=== PATIENT | male | born 1955 | race Caucasian/White ===

== ENCOUNTER 2017-11-03 08:47 | Inpatient (IN) | payer OTHER ==
[~2017-11-03] VITALS: Ht 177.8 cm; Wt 79.8 kg
[2017-11-03] VITALS (7 sets, daily range): BP systolic 92–138; BP diastolic 53–84
--- NOTE | ~2017-11-03 | 2DMMODE ---
[facility] [address] [place] [address] 2 D/M-MODE ECHOCARDIOGRAM Name: BREA SNOW Room #: 204-P ADM IN M.R.#: [id number] Admission: 11/03/17 Attend Phys: Neville Linares Discharge: Date of : 51 Date of Service: 11/03/17 1359 Report #: [id number] THIS REPORT FOR: //name// APPROVED REPORT Study performed: 11/03/2017 12:56:19 EXAM: Comprehensive 2D, Doppler, and color-flow Echocardiogram Patient Location: Bedside Room #: 204 Status: routine BSA: 1.97 HR: 63 bpm BP: 99/55 mmHg Rhythm: NSR Other Information Study Quality: Good Indications Chest pain. Hx: MV repair 09/2017. 2D Dimensions RVDd: 34.94 mm LVEF(%): 47.27 (>50%) IVSd: 8.97 (7-11mm) LVOT Diam: 23.30 (18-24mm) LVDd: 56.78 mm PWd: 9.35 (7-11mm) Ascending Ao: 34.44 (22-36mm) LVDs: 43.13 (25-40mm) Aortic Root: 37.67 mm Freeman's LVEF: 47.27 % Volumes Left Atrial Volume (Systole) Single Plane 4CH: 50.46 mL Single Plane 2CH: 57.09 mL LA ESV Index: 29.00 mL/m2 Aortic Valve AoV Peak Elijah.: 1.25 m/s AO Peak Gr.: 6.25 mmHg LVOT Max P.46 mmHg LVOT Max V: 1.06 m/s HENNA Vmax: 3.60 cm2 Mitral Valve E/A Ratio: 1.1 MV Decel. Time: 360.16 ms [facility] [place] [address] 2 D/M-MODE ECHOCARDIOGRAM Name: BREA SNOW Room #: 204-P [facility] IN .R.#: [id number] Admission: 11/03/17 Attend Phys: Neville Linares Discharge: Date of : 51 Date of Service: 11/03/17 1359 Report #: [id number] MV E Max Elijah.: 1.21 m/s MV A Elijah.: 1.11 m/s MV PHT: 104.45 ms IVRT: 101.50 ms Pulmonary Valve PV Peak Elijah.: 0.76 m/s PV Peak Gr.: 2.30 mmHg Pulmonary Vein P Vein S: 0.45 m/s P Vein A: 0.25 m/s P Vein D: 0.48 m/s P Vein A Dur.: 124.6 msec P Vein S/D Ratio: 0.94 Tricuspid Valve TR Peak Elijah.: 2.34 m/s RAP Estimate: 5.00 mmHg TR Peak Gr.: 21.93 mmHg PA Pressure: 27.00 mmHg Left Ventricle The left ventricle is normal size. There is normal left ventricular wall thickness. Left ventricular systolic function is normal. LVEF is 55%. Moderate diastolic dysfunction is present (pseudonormal filling). Right Ventricle The right ventricle is normal size. The right ventricular systolic function is normal. Atria The left atrium size is normal. The right atrium size is normal. Aortic Valve The aortic valve is normal in structure. Trace aortic regurgitation. There is no aortic valvular stenosis. Mitral Valve Status post mitral valve repair. (09/2017) Mild mitral regurgitation. No evidence of mitral valve stenosis. Tricuspid Valve The tricuspid valve is normal in structure. Mild tricuspid regurgitation. Estimated PAP is 25-30mmHg. Pulmonic Valve The pulmonary valve is normal in structure. Trace pulmonic [facility] [address] [place] [address] 2 D/M-MODE ECHOCARDIOGRAM Name: BREA SNOW Room #: 204-P [facility] IN [facility].#: [id number] Admission: 11/03/17 Attend Phys: Neville Linares Discharge: Date of : 51 Date of Service: 11/03/17 1359 Report #: [id number] regurgitation. Great Vessels Aortic root measures at the upper limits of normal. The ascending aorta is normal in size. IVC is normal in size and collapses >50% with inspiration. Pericardium There is no pericardial effusion. <Conclusion> The left ventricle is normal size. LVEF is 55%. Moderate diastolic dysfunction is present (pseudonormal filling). The right ventricle is normal size. The left atrium size is normal. Trace aortic regurgitation. Mild mitral regurgitation. Mild tricuspid regurgitation. Estimated PAP is 25-30mmHg. There is no pericardial effusion. <ELECTRONICALLY SIGNED> By: Bradford Knox MD, FACC 11/03/17 1359 1359 1359 Bradford Knox MD, FACC /INF
--- NOTE | ~2017-11-03 | H ---
[facility] [place] [address] HISTORY AND PHYSICAL Name: BREA SNOW Room #: 204-P [facility] IN M.R.#: [id number] Admission: 11/03/17 Attend Phys: Jp Zimmerman MD Discharge: 11/04/17 Date of : 51 Report #: [id number] THIS REPORT FOR: //name// CC: Guy Zimmerman DATE OF SERVICE: 11/03/2017 CHIEF COMPLAINT: Chest pain. HISTORY OF PRESENT ILLNESS: The patient is a 62-year-old male with history of hypertension, status post mitral valve repair on 09/20/2017, presented to the emergency room complaining of chest pain. The patient also has history of Parkinson's disease and has a brain stimulator placed in the past. He reported sudden onset of left-sided chest pain at around 7:00 a.m. He described this as a pressure, which radiated to his right side of the chest and to the neck. It is also associated with mild shortness of breath. No dizziness. He took some Prilosec without much relief. In the emergency room, his chest pain improved a little bit from 5/10 to 3/10 with sublingual nitroglycerin. PAST MEDICAL HISTORY: Significant for hypertension, recent mitral valve repair, history of tonsillectomy. No history of diabetes, no history of any known coronary artery disease. History of Parkinson's disease and status post brain stimulator, he is followed up at [facility]. FAMILY HISTORY: Significant for hypertension. ALLERGIES: To DOXYCYCLINE, please look at the nursing documentation for the reaction. HOME MEDICATIONS: Reviewed, please look at the nursing documentation. REVIEW OF SYSTEMS: CONSTITUTIONAL: No fever or chills. EYES: No change in vision. THROAT: Denies any sore throat. CARDIOVASCULAR: As above. RESPIRATORY: No cough or expectoration. GASTROINTESTINAL: No nausea or vomiting. GENITOURINARY: No dysuria or hematuria. NEUROLOGIC: Denies any focal numbness or weakness of the extremity. He does have some generalized weakness. The 12-point review of system is negative other than the positive and negative dictated in the history of present illness and the review of system. [address] [address] HISTORY AND PHYSICAL Name: BREA SNOW Room #: 204-P [facility] IN [facility].#: [id number] Admission: 11/03/17 Attend Phys: Jp Zimmerman MD Discharge: 11/04/17 Date of : 51 Report #: [id number] PHYSICAL EXAMINATION: VITAL SIGNS: Reveal blood pressure 92/53, heart rate of 76 per minute, afebrile. GENERAL: The patient is awake and alert, not in acute respiratory distress. EYES: Pupils are equal, reactive to light, nonicteric conjunctivae. THROAT. He has a dry oral mucosa. Speech is kind of slow, which is his baseline. NECK: Supple, no JVD, no bruit, no lymphadenopathy. CARDIOVASCULAR SYSTEM: S1, S2, negative S3, no murmur. CHEST: Bilateral air entry present. Clear on auscultation. ABDOMEN: Soft, bowel sounds present, no mass, no organomegaly, no tenderness. PERIPHERY: No pedal edema. No calf tenderness. Dorsalis pedis 1+. NEUROLOGIC: No focal neurological deficit noted. LABORATORY DATA: Reviewed. CT of the chest showed no evidence of any PE, there is mild cardiomegaly, fatty infiltration. Chest x-ray showed no acute abnormality. His troponin has been negative so far. His BUN and creatinine are 13 and 1.3. His BNP was 872. White count is 9.9, normal hemoglobin. His EKG showed normal sinus rhythm, left atrial enlargement. No significant ST segment or T-wave changes. ASSESSMENT: 1. Chest pain, etiology not clear. Possible angina. The patient will be admitted to telemetry, will undergo serial troponin. We will check his lipids in the morning. We will consult cardiology. We will consider to obtain an echocardiogram to evaluate his left ventricular function and mitral valve. CT chest showed no evidence of any pulmonary embolism. 2. Hypertension. The patient will be continued on his present home medication. 3. Recent mitral valve repair with minimally invasive . 4. Deep vein thrombosis prophylaxis. He will be on Lovenox for DVT prophylaxis. Treatment plan has been explained to the patient and the patient's at bedside in detail. <ELECTRONICALLY SIGNED> By: Jp Zimmerman MD 11/05/17 1354 1238 1327 Jp Zimmerman MD /nt
--- NOTE | ~2017-11-03 | EKG ---
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 : 1955 Requested By: Miles Goodwin Order Number: [id number] MD: Bruno Davis Measurements Intervals [place] Rate: 70 P: 48 NV: 149 QRS: 21 QRSD: 92 T: 69 QT: 394 QTc: 426 Interpretive Statements Sinus rhythm Probable left atrial enlargement Compared to ECG 10/24/2006 11:19:56 Sinus bradycardia no longer present ST (T wave) deviation no longer present Electronically Signed On 11-04-2017 8:17:59 [employer]ACKJ[employer] DEALER by Bruno Davis [email or web address] <ELECTRONICALLY SIGNED> By: Bruno Davis MD 11/04/17816 3 3 Bruno Davis MD /EPI
[2017-11-03 09:14] LABS: HEMATOCRIT 41.7 % (42.0-52.0); HEMOGLOBIN 14.3 gm/dL (14.0-18.0); MCH 31.9 pg (26.0-34.0); MCHC 34.3 g/dL (28.0-37.0); RBC 4.49 mil/uL (4.50-6.00); RDW 12.8 % (10.5-14.5); WBC 9.9 thou/uL (4.0-11.0)
[2017-11-03 09:22] LABS: ANION GAP 7 mmol/L (7-16); BUN 13 mg/dL (7-18); CALCIUM 8.7 mg/dL (8.5-10.1); CHLORIDE 103 mmol/L (98-107); CO2 29 mmol/L (21-32); CREATININE 1.1 mg/dL (0.7-1.3); GLUCOSE 113 mg/dL (74-106); POTASSIUM 3.8 mmol/L (3.5-5.1); SODIUM 139 mmol/L (136-145)
[2017-11-03] MEDS ORDERED: CARBIDOPA-LEVO1 EAC9 PO (09:28)
[2017-11-03] MEDS ORDERED: AMANTADINE100 M1 PO (09:28)
[2017-11-03] MEDS ORDERED: LOPRESSOR50 PO (09:29)
[2017-11-03] MEDS ORDERED: SIMVASTATIN40 MG PO (09:29)
[2017-11-03] MEDS ORDERED: PAXIL10 MG PO (09:29)
[2017-11-03] MEDS ORDERED: ASPIR 8181 MG PO (09:30)
[2017-11-03] MEDS ORDERED: MULTIPLE VITAM1 EAC2 PO (09:30)
[2017-11-03] MEDS ORDERED: MELATONIN3 MG PO (09:30)
[2017-11-03 09:31] LABS: TROPONIN-I < 0.04 ng/mL (<0.06)
[2017-11-03] MEDS ORDERED: TYLENOL325 MG PO (09:31)
[2017-11-03] MEDS ORDERED: STOOL SOFTENER100 MG PO (09:31)
[2017-11-04 03:54] VITALS: BP 112/81
[2017-11-04 05:07] LABS: ANION GAP 4 mmol/L (7-16); BUN 12 mg/dL (7-18); CALCIUM 8.5 mg/dL (8.5-10.1); CHLORIDE 105 mmol/L (98-107); CHOLESTEROL 128 mg/dL (<200); CO2 29 mmol/L (21-32); CREATININE 1.1 mg/dL (0.7-1.3); GLUCOSE 97 mg/dL (74-106); HDL CHOLESTEROL 60 mg/dL (>40); LDL CHOLESTEROL 63 mg/dL (<100); POTASSIUM 3.7 mmol/L (3.5-5.1); SODIUM 138 mmol/L (136-145); TC:HDL 2.1 Ratio (Not establshd); TRIGLYCERIDE 27 mg/dL (<150); VLDL 5 mg/dL (<40)
[2017-11-04 05:11] LABS: SERUM ASSESSMENT Clear
[2017-11-04 05:41] LABS: HEMATOCRIT 35.9 % (42.0-52.0); MCHC 34.2 g/dL (28.0-37.0); MCV 93.4 fL (80.0-100.0); RBC 3.85 mil/uL (4.50-6.00); RDW 12.7 % (10.5-14.5)
[2017-11-04 05:43] LABS: HEMOGLOBIN 12.3 gm/dL (14.0-18.0)
[2017-11-04 07:15] VITALS: BP 116/63
[2017-11-04 11:49] VITALS: BP 82/53
[2017-11-04 12:05] VITALS: BP 82/53
[2017-11-04 12:55] VITALS: BP 82/53
[2017-11-04 12:57] VITALS: BP 82/53
== END 2017-11-04 13:23 | disposition home health service (06) | DRG 313 ==
LOC: ER 08:47 → 2N 09:53 → EROBS 09:53 → 2N 10:19 → ENTRNSPT 11-04 13:07 → EDTRNSPTSTS 11-04 13:11 → 2N 11-04 13:23
PROVIDERS: Emergency Medicine; Internal Medicine
DX: R07.89 Other chest pain (principal); G20 Parkinson's disease; I10 Essential (primary) hypertension; E78.5 Hyperlipidemia, unspecified; K21.9 Gastro-esophageal reflux disease without esophagitis; K58.9 Irritable bowel syndrome, unspecified; I48.0 Paroxysmal atrial fibrillation; Z82.49 Family history of ischemic heart disease and other diseases of the circulatory system; Z87.891 Personal history of nicotine dependence; Z88.1 Allergy status to other antibiotic agents; Z79.899 Other long term (current) drug therapy; Z90.49 Acquired absence of other specified parts of digestive tract; Z28.21 Immunization not carried out because of patient refusal
CPT/HCPCS: 10078

== ENCOUNTER 2018-11-10 15:08 | Emergency (ER) | payer OTHER ==
[~2018-11-10] VITALS: Ht 177.8 cm; Wt 81.7 kg
[~2018-11-10 15:08] MED LIST: AMANTADINE100 M1 PO; ASPIR 8181 MG PO; CARBIDOPA-LEVO1 EAC9 PO; LOPRESSOR50 PO; MELATONIN3 MG PO; MULTIPLE VITAM1 EAC2 PO; PAXIL10 MG PO; SIMVASTATIN40 MG PO; STOOL SOFTENER100 MG PO; TYLENOL325 MG PO
[2018-11-10 17:15] VITALS: BP 94/54
== END 2018-11-10 17:15 | disposition home or self-care (01) ==
LOC: ER 15:08
DX: S01.01XA Laceration without foreign body of scalp, initial encounter (principal); G20 Parkinson's disease; Z87.891 Personal history of nicotine dependence; Z88.8 Allergy status to other drugs, medicaments and biological substances; W18.39XA Other fall on same level, initial encounter; Y92.89 Other specified places as the place of occurrence of the external cause; Y93.89 Activity, other specified; Y99.8 Other external cause status

== ENCOUNTER 2019-12-01 14:50 | Emergency (ER) | payer OTHER ==
[~2019-12-01] VITALS: Ht 180.3 cm; Wt 81.7 kg
[2019-12-01] MEDS ORDERED: NORCO 5-325 TA1 EAC1 PO (16:49)
[2019-12-01 17:12] VITALS: BP 103/64
== END 2019-12-01 17:30 | disposition home or self-care (01) ==
LOC: ER 14:50
DX: S22.41XA Multiple fractures of ribs, right side, initial encounter for closed fracture (principal); G20 Parkinson's disease; Z87.891 Personal history of nicotine dependence; Z88.1 Allergy status to other antibiotic agents; W18.39XA Other fall on same level, initial encounter; Y93.89 Activity, other specified; Y92.89 Other specified places as the place of occurrence of the external cause; Y99.8 Other external cause status

== ENCOUNTER → 2020-01-24 | Outpatient (CLI) | payer OTHER ==
[~2020-01-24] MED LIST changes: +NORCO 5-325 TA1 EAC1 PO
== END ==
LOC: SJCVC 14:20
DX: I34.0 Nonrheumatic mitral (valve) insufficiency (principal); I10 Essential (primary) hypertension; E78.5 Hyperlipidemia, unspecified; G20 Parkinson's disease; Z98.890 Other specified postprocedural states; Z79.899 Other long term (current) drug therapy; Z87.891 Personal history of nicotine dependence

== ENCOUNTER → 2020-07-28 | Outpatient (CLI) | payer OTHER | LOC: SJCVC 17:00 | PROVIDERS: ATTEND Internal Medicine | DX: I34.0 Nonrheumatic mitral (valve) insufficiency (principal); I10 Essential (primary) hypertension; E78.5 Hyperlipidemia, unspecified; G20 Parkinson's disease; Z98.890 Other specified postprocedural states ==

== ENCOUNTER → 2021-01-26 | Outpatient (CLI) | payer OTHER ==
[~2021-01-26] MED LIST changes: +B12INJ IM; +BLACK ELDERBER1 EACH PO; +FISH OIL 1,0001 EAC9 PO; +FLOMAX0.4 MG PO; +RIVASTIGMINE1.5 MG PO; +VITAMIN D310 MC1 PO; +ZYRTEC10 M2 PO
== END ==
LOC: SJCVC 14:31
PROVIDERS: ATTEND Internal Medicine
DX: I34.0 Nonrheumatic mitral (valve) insufficiency (principal); I10 Essential (primary) hypertension; E78.5 Hyperlipidemia, unspecified; G20 Parkinson's disease; Z98.890 Other specified postprocedural states; K21.9 Gastro-esophageal reflux disease without esophagitis; Z79.899 Other long term (current) drug therapy; Z87.891 Personal history of nicotine dependence; Z88.1 Allergy status to other antibiotic agents

== ENCOUNTER 2021-01-29 09:31 | Emergency (ER) | payer OTHER ==
[~2021-01-29] VITALS: Ht 180.3 cm; Wt 83.0 kg
[~2021-01-29 09:31] MED LIST changes: -B12INJ IM; -BLACK ELDERBER1 EACH PO; -FISH OIL 1,0001 EAC9 PO; -FLOMAX0.4 MG PO; -RIVASTIGMINE1.5 MG PO; -VITAMIN D310 MC1 PO; -ZYRTEC10 M2 PO
[2021-01-29] MEDS ORDERED: FLOMAX0.4 MG PO (09:40)
[2021-01-29] MEDS ORDERED: RIVASTIGMINE1.5 MG PO (09:40)
[2021-01-29] MEDS ORDERED: ZYRTEC10 M2 PO (09:41)
[2021-01-29] MEDS ORDERED: VITAMIN D310 MC1 PO (09:42)
[2021-01-29] MEDS ORDERED: FISH OIL 1,0001 EAC9 PO (09:43)
[2021-01-29] MEDS ORDERED: BLACK ELDERBER1 EACH PO (09:43)
[2021-01-29] MEDS ORDERED: B12INJ IM (09:43)
[2021-01-29 12:13] VITALS: BP 111/59
== END 2021-01-29 12:14 | disposition home or self-care (01) ==
LOC: ER 09:31
DX: S22.41XA Multiple fractures of ribs, right side, initial encounter for closed fracture (principal); M54.5 Low back pain; Z79.899 Other long term (current) drug therapy; Z87.891 Personal history of nicotine dependence; Z79.82 Long term (current) use of aspirin; Z88.1 Allergy status to other antibiotic agents; W18.39XA Other fall on same level, initial encounter; Y93.89 Activity, other specified; Y92.89 Other specified places as the place of occurrence of the external cause; Y99.8 Other external cause status

== ENCOUNTER → 2021-03-26 | Outpatient (CLI) | payer OTHER ==
[~2021-03-26] MED LIST changes: +B12INJ IM; +BLACK ELDERBER1 EACH PO; +FISH OIL 1,0001 EAC9 PO; +FLOMAX0.4 MG PO; +RIVASTIGMINE1.5 MG PO; +VITAMIN D310 MC1 PO; +ZYRTEC10 M2 PO
== END ==
LOC: RAD 15:08
PROVIDERS: ATTEND Family Medicine
DX: R91.8 Other nonspecific abnormal finding of lung field (principal); J98.11 Atelectasis; J90 Pleural effusion, not elsewhere classified; R06.02 Shortness of breath; R07.9 Chest pain, unspecified

== ENCOUNTER → 2021-07-30 | Outpatient (CLI) | payer OTHER | LOC: SJCVC 15:17 | PROVIDERS: ATTEND Internal Medicine | DX: I34.0 Nonrheumatic mitral (valve) insufficiency (principal); I10 Essential (primary) hypertension; E78.5 Hyperlipidemia, unspecified; G20 Parkinson's disease; Z98.890 Other specified postprocedural states; Z87.891 Personal history of nicotine dependence; Z79.82 Long term (current) use of aspirin; Z79.899 Other long term (current) drug therapy; Z88.1 Allergy status to other antibiotic agents ==

== ENCOUNTER 2021-09-06 17:13 | Inpatient (IN) | payer OTHER ==
[~2021-09-06] VITALS: Ht 180.3 cm; Wt 86.2 kg
--- NOTE | ~2021-09-06 | EMS ---
[address] [address] EMS Patient Care Report Name: BREA SNOW Room #: 170-11 ADM IN M.R.#: [id number] Admission: 09/06/21 Attend Phys: Linda Goodrich MD Discharge: Date of : 51 Report #: [id number] THIS REPORT FOR: //name// Report Transmitted: 09/06/2021 22:56 EMS Care Summary [facility] Incident [id number] @ 09/06/2021 16:16 Incident Location [address] [place] [address] Patient BREA SNOW Male, 66 Years 1955 Patient Address [address] [place] [address] Patient History Parkinson's Disease,Cardiac Murmur, Patient Allergies Seasonal allergy, Patient Medications Clonazepam, Paroxetine, Carbidopa, Chief Complaint syncope Disposition Transported No Lights/[place] Reason Falls Transported To [facility] Narrative Family states pt had syncope and collapse. Family states pt was sitting at end of table. Family states pt got blank stare on face and went unconscious briefly. Family states pt went down to the ground. Family states pt did not hit head. Family states chair broke behind pt during fall. [facility] states pt has [address] [address] EMS Patient Care Report Name: BREA SNOW Room #: 170-[address] [facility]#: [id number] Admission: 09/06/21 Attend Phys: Linda Goodrich MD Discharge: Date of : 51 Report #: [id number] stimulator implanted in left chest to help control tremors. Family states pt is not supposed to be ambulatory independently. Family states pt has hx of Parkinson's. Family states pt has low blood pressure. Family does not know pt's resting HR. 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 Family states pt has no cardiac abnormalities; besides cardiac murmur which was repaired. Family states pt is at baseline upon EMS arrival. Pt states he remembers prior to and after event. Pt states he went to stand up and felt uneasy. Pt states did not have anything to grab onto to keep his balance. Pt states next he knew he was on the floor. Pt denies hitting his head. Pt denies any chest pain or discomfort. Pt denies any difficulty breathing. Pt denies any pain or discomfort. Pt was calm and cooperative. EMS did not note any signs of trauma, deformity, or bleeding. Rhythm strip left w/ ED RN. Pt's tremors created artifact. Monitor unable to transmit vitals directly. Pt found seated on floor w/ supporting back and neck upon arrival, alert and oriented, in no apparent distress. Airway patent, breathing adequate, pulses present. Physical assessment as noted. Treat pt for syncope and transport to ED. [place] [facility] dispatched to residence on 66 yo male w/ noted hx, suffering from syncope. Arrived on scene to find pt on floor. Primary assessment performed, baseline vitals obtained. Cardiac monitoring initiated, 12-lead obtained. Assisted pt to standing and to chair, w/o incident. Vitals reassessed. Assisted pt to standing and to cot, w/o incident. Secured pt to cot. Moved pt to ambulance. Vascular access obtained. Transported pt to [facility], w/o incident. Pt and vitals monitored en route. Arrived at destination and moved pt to ER. Transferred pt to bed, using sheet, w/ assistance from staff, w/o incident. Report given and care transferred to ED RN. Pt left in stable condition. [facility] cleared. Initial Vitals @16:30P: 37,Pain: 0/10, @16:26P: 40,R: 20,BP: 110/60,Pain: 0/10,GCS: 15,SpO2: 97,Revised Trauma: 12, @16:27P: 36,R: 20,Pain: 0/10,GCS: 15,SpO2: 97, @16:32P: 37,R: 20,Pain: 0/10,GCS: 15,SpO2: 97,[place] Suspected: false @16:57P: 36,R: 20,BP: 100/51,Pain: 0/10,GCS: 15,SpO2: 97,Revised Trauma: 12,[place] Suspected: false @17:05P: 36,R: 20,Pain: 0/10,GCS: 15,SpO2: 95, @17:10P: 36,R: 20,BP: 90/56,GCS: 15,SpO2: 96,Revised Trauma: 12, Impression Syncope / Fainting [facility] [address] [place] [address] EMS Patient Care Report Name: BREA SNOW Room #: 170-11 ADM IN M.R.#: [id number] Admission: 09/06/21 Attend Phys: Linda Goodrich MD Discharge: Date of : 51 Report #: [id number] Procedures @16:23 ALS Assessment Response: UnchangedSucceeded @16:59 IV Therapy - Lactated Ringers 900cc (20 ga) Site: Hand-Right Response: UnchangedSucceeded @16:27 3-Lead ECG Response: UnchangedSucceeded @16:30 12-Lead ECG Response: UnchangedSucceeded @16:32 12-Lead ECG Response: UnchangedSucceeded @16:46 12-Lead ECG Response: UnchangedSucceeded Timeline 16:14,Call Received 16:14,Psap Call 16:16,Dispatched 16:18,En Route 16:21,Initial Responder On Scene 16:21,On Scene 16:22,At Patient 16:23,ALS Assessment,Response: UnchangedSucceeded, 16:26,BP: 110/60 M,PULSE: 40,RR: 20 R,SPO2: 97 Ox,ETCO2: ,BG: ,PAIN: 0,GCS: 15, 16:27,3-Lead ECG,Response: UnchangedSucceeded, 16:27,BP: / M,PULSE: 36,RR: 20 R,SPO2: 97 Ox,ETCO2: ,BG: ,PAIN: 0,GCS: 15, 16:30,12-Lead ECG,Response: UnchangedSucceeded, 16:30,BP: / M,PULSE: 37,RR: R,SPO2: Ox,ETCO2: ,BG: ,PAIN: 0,GCS: , 16:32,12-Lead ECG,Response: UnchangedSucceeded, 16:32,BP: / M,PULSE: 37,RR: 20 R,SPO2: 97 Ox,ETCO2: ,BG: ,PAIN: 0,GCS: 15, 16:46,12-Lead ECG,Response: UnchangedSucceeded, 16:57,BP: 100/51 M,PULSE: 36,RR: 20 R,SPO2: 97 Ox,ETCO2: ,BG: ,PAIN: 0,GCS: 15, 16:59,IV Therapy - Lactated Ringers 900cc 20 ga Site: Hand-Right,Response: UnchangedSucceeded, 17:04,Depart Scene 17:05,BP: / M,PULSE: 36,RR: 20 R,SPO2: 95 Ox,ETCO2: ,BG: ,PAIN: 0,GCS: 15, 17:08,At Destination 17:10,BP: 90/56 M,PULSE: 36,RR: 20 R,SPO2: 96 Ox,ETCO2: ,BG: ,PAIN: ,GCS: 15, 17:15,Transfer Patient 17:41,Call Closed Disclaimer v1.1 Copyright 2020 [employer] This EMS Care Summary contains data elements from the applicable legal record (which may be displayed differently). It is designed to provide pertinent information for the following purposes: continuity of care, clinical quality, and state data reporting. The complete legal record is available to ED staff and administrators of the receiving hospital in [employer] Patient Tracker. All data is provided "as is."
[2021-09-06 17:14] VITALS: BP 103/39
[2021-09-06 17:40] LABS: ABSOLUTE NEUTROPHILS 3.2 thou/uL (1.4-8.2); BASOPHILS 0.4 % (0.0-2.0); EOSINOPHILS 10.7 % (0.0-3.0); HEMATOCRIT 44.8 % (42.0-52.0); LYMPHOCYTES 30.3 % (24.0-44.0); MCH 32.4 pg (26.0-34.0); MCHC 33.5 g/dL (28.0-37.0); MCV 96.7 fL (80.0-100.0); PLATELET COUNT 180 thou/uL (150-400); POLYS 50.6 % (36.0-66.0); RBC 4.64 mil/uL (4.50-6.00); RDW 12.8 % (10.5-14.5); WBC 6.3 thou/uL (4.0-11.0)
[2021-09-06 18:08] LABS: CALCIUM 8.6 mg/dL (8.5-10.1); CREATININE 1.5 mg/dL (0.7-1.3)
--- NOTE | 2021-09-06 19:11 | NUR ---
REPORT GIVEN TO PABLITO DEJESUS AT THIS TIME
[2021-09-06 20:46] VITALS: BP 100/51
--- NOTE | 2021-09-07 07:29 | EKG ---
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 : 1955 Requested By: Johnny Yoon Order Number: [id number] MD: Lacho Villegas Measurements Intervals [place] Rate: 36 P: 68 UT: QRS: 159 QRSD: 168 T: 13 QT: 616 QTc: 477 Interpretive Statements Complete AV block with wide QRS complex RBBB Compared to ECG 11/03/2017 08:54:34 AV block, complete (third-degree) now present Left posterior fascicular block now present Right bundle-branch block now present Sinus rhythm no longer present Electronically Signed On 09-07-2021 7:28:58 CDT by Lacho Villegas [email or web address] <ELECTRONICALLY SIGNED> By: Lacho Villegas MD, FAC 09/07/21 0728 18 18 Lacho Villegas MD, [facility] /EPI
--- NOTE | 2021-09-07 07:29 | EKG ---
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 : 1955 Requested By: Johnny Yoon Order Number: [id number] MD: Lacho Villegas Measurements Intervals [place] Rate: 74 P: 52 VT: 159 QRS: 34 QRSD: 129 T: 199 QT: 391 QTc: 434 Interpretive Statements Sinus rhythm Left bundle branch block Compared to ECG 09/06/2021 17:19:49 Left bundle-branch block now present AV block, complete (third-degree) no longer present Left posterior fascicular block no longer present Right bundle-branch block no longer present Electronically Signed On 09-07-2021 7:29:11 CDT by Lacho Villegas [email or web address] <ELECTRONICALLY SIGNED> By: Lacho Villegas MD, FAC 09/07/21 0729 174 40 Lacho Villegas MD, [facility] /EPI
== END 2021-09-06 20:46 | disposition left against medical advice (07) | DRG 310 ==
LOC: ER 17:13 → EROBS 19:26
PROVIDERS: Nurse Practitioner; ADMIT Internal Medicine; ATTEND Internal Medicine
DX: I44.2 Atrioventricular block, complete (principal); R55 Syncope and collapse; R00.1 Bradycardia, unspecified; G20 Parkinson's disease; Z96.82 Presence of neurostimulator; Z79.899 Other long term (current) drug therapy; Z79.82 Long term (current) use of aspirin; Z88.1 Allergy status to other antibiotic agents

== ENCOUNTER → 2021-09-07 | Outpatient (CLI) | payer OTHER | LOC: SJCVC 15:31 | PROVIDERS: ATTEND Internal Medicine | DX: I45.2 Bifascicular block (principal); I44.2 Atrioventricular block, complete; I10 Essential (primary) hypertension; I34.0 Nonrheumatic mitral (valve) insufficiency; E78.5 Hyperlipidemia, unspecified; G20 Parkinson's disease; Z86.79 Personal history of other diseases of the circulatory system; Z98.890 Other specified postprocedural states; Z95.2 Presence of prosthetic heart valve; Z87.891 Personal history of nicotine dependence; Z88.8 Allergy status to other drugs, medicaments and biological substances; Z79.82 Long term (current) use of aspirin; Z79.899 Other long term (current) drug therapy ==